=== PATIENT | female | born 1985 | race Caucasian/White ===

== ENCOUNTER 2017-04-10 13:29 | Emergency (ER) | payer MEDICAID ==
[~2017-04-10] VITALS: Ht 160 cm; Wt 50.5 kg
[2017-04-10 13:33] VITALS: Ht 160 cm; Wt 50.5 kg
[2017-04-10] MEDS ORDERED: ACYC800T57 PO (14:08)
[2017-04-10] MEDS ORDERED: TRAM50TA2 PO (14:08)
--- NOTE | 2017-04-10 14:14 | ERD ---
ER Documentation Chief Complaint Date/Time DATE: 04/10/17 TIME: 14:10 Chief Complaint LT SIDED HEADACHE WITH FACIAL NUMBNESS AND ITCHING X 4 DAYS HPI 31 year old female comes in with a left sided temporal headache, with left sided facial numbness, In with left-sided forehead rash that started 2 days ago. Patient describes the pain as burning, with associated numbness. She denies any eye pain, visual changes, ear pain. She denies fevers, chills, neck stiffness. ROS All systems reviewed and are negative except as per history of present illness. Medications Home Meds Active Scripts Tramadol HCl (Tramadol HCl) 50 Mg Tablet, 50 MG PO Q4 Y for PAIN, #20 TAB Prov:DANIS REYNOLDS PA-C 04/10/17 Acyclovir* (Zovirax*) 800 Mg Tablet, 800 MG PO 5 TIMES DAILY for 7 Days, TAB Prov:DANIS REYNOLDS PA-C 04/10/17 PMhx/Soc Medical and Surgical Hx: pt denies Medical Hx, pt denies Surgical Hx Hx Alcohol Use: No Hx Substance Use: No Hx Tobacco Use: No Smoking Status: Never smoker Physical Exam Vitals Vital Signs Date Time Temp Pulse Resp B/P Pulse Ox O2 Delivery O2 Flow Rate FiO2 04/10/17 13:33 98.9 80 18 138/80 99 Physical Exam General: Well-developed, well-nourished. The patient appears in no acute distress. HEENT: Head is normocephalic, atraumatic. No scleral icterus. Pupils are equal , round, and reactive. Oral mucous membranes are moist. No pharyngeal erythema. Neck: Supple. Nontender. Lungs: Clear to auscultation. Normal air movement. Heart: Regular rate and rhythm. S1 and S2 are normal. No murmurs, gallops, or rubs. Abdomen: Soft, nontender, nondistended. Bowel sounds are normoactive. Extremities: No clubbing or cyanosis. Normal pulses. Moving extremities x 4. No weakness. Neurologic: Alert and oriented 3. No focal deficits. Cranial nerves II 12 grossly intact. There Skin: Erythematous grouped vesicles in the left upper forehead and scalp. Procedures/MDM 31-year-old female comes in with evidence of shingles, with associated headache , facial numbness. No signs of herpetic ophthalmicus, meningitis, encephalitis , systemic signs of infection. Departure Diagnosis: Primary Impression: Shingles Condition: Good Patient Instructions: Shingles (Herpes Zoster) DANIS REYNOLDS PA-C Apr 10, 2017 14:14
== END 2017-04-10 14:16 | disposition home or self-care (01) ==
LOC: FTE 13:29
DX: B02.9 Zoster without complications (principal)
CPT/HCPCS: 99284

== ENCOUNTER 2017-08-21 15:05 | Emergency (ER) | END 2017-08-21 19:28 | disposition home or self-care (01) ==

== ENCOUNTER 2018-11-19 13:55 | Emergency (ER) | payer MEDICAID ==
[~2018-11-19] VITALS: Wt 49.0 kg
[~2018-11-19 13:55] MED LIST: ACYC800T5 PO; CYCL10TA7 PO; IBUP-1542 PO; TRAM50TA2 PO
[2018-11-19 13:58] VITALS: BP 128/61; PULSE 76; RESP 18
[2018-11-19] MEDS ORDERED: CEPH-443 PO (14:51)
--- NOTE | 2018-11-19 15:26 | ERD ---
ER Documentation Chief Complaint Chief Complaint RIGHT INDEX FINGER PAIN FROM CUT FROM GLASS 2 WKS AGO,LIMITED ROM HPI This is a 33-year-old female with a nonsignificant past medical history presents ED with right index finger pain that is been present for 2 weeks. Patient states that 2 weeks ago she excellently cut the dorsal aspect of her right second digit. Patient states that she has been noticing pain and swelling along this area since. Admits to some limited range of motion. Denies fever, chills, redness, purulent drainage, tingling, numbness, lack sensation ROS All systems reviewed and are negative except as per history of present illness. Medications Home Meds Active Scripts Cephalexin* (Keflex*) 500 Mg Capsule, 500 MG PO QID for 10 Days, CAP Prov:FRANCISCO ROOT PA-C 11/19/18 Cyclobenzaprine Hcl* (Cyclobenzaprine Hcl*) 10 Mg Tablet, 10 MG PO Q8 PRN for MUSCLE SPASMS, #30 TAB Prov:CARMELA FAIR PA-C 08/21/17 Ibuprofen* (Motrin*) 600 Mg Tab, 600 MG PO Q6H PRN for PAIN AND OR ELEVATED TEMP, #30 TAB Prov:CARMELA FAIR PA-C 08/21/17 Tramadol HCl (Tramadol HCl) 50 Mg Tablet, 50 MG PO Q4 PRN for PAIN, #20 TAB Prov:DANIS REYNOLDS PA-C 04/10/17 Acyclovir* (Zovirax*) 800 Mg Tablet, 800 MG PO 5 TIMES DAILY for 7 Days, TAB Prov:DANIS REYNOLDS PA-C 04/10/17 PMhx/Soc Medical and Surgical Hx: pt denies Medical Hx, pt denies Surgical Hx Hx Alcohol Use: No Hx Substance Use: No Hx Tobacco Use: No Smoking Status: Never smoker FmHx Family History: No diabetes Physical Exam Vitals Vital Signs Date Temp Pulse Resp B/P (MAP) Pulse Ox O2 O2 Flow FiO2 Time Delivery Rate 11/19/18 97.7 76 18 128/61 100 13:58 (83) Physical Exam Const: No acute distress Head: Atraumatic Eyes: Normal Conjunctiva ENT: Normal External Ears, Nose and Mouth. Neck: Full range of motion. No meningismus. Resp: Clear to auscultation bilaterally Cardio: Regular rate and rhythm, no murmurs Ext: No cyanosis, or edema Upper Extremity - bilateral: Skin: Mild swelling along patient's right dorsal second finger Compartments: Soft Motor: Full active range of motion shoulder/elbow/wrist/hand Sensation: Intact shoulder/pinky/middle finger/thumb web space Bones: Moderate tenderness palpation along dorsal second finger, nontender humerus/elbow/forearm/wrist/hand Snuffbox: Nontender Joints: No effusion Pulses/Perfusion: 2+ radial, Capillary refill < 2 seconds Radial ulnar median nerve tested for sensory motor function with no deficit Neur: Awake and alert Psych: Normal Mood and Affect Procedures/MDM ER COURSE: The patient was stable throughout ED course. I kept the patient and/or family informed of laboratory and diagnostic imaging results throughout the emergency room course. The patient was promptly evaluated and a treatment plan was devised based on H&P and other data. This plan was discussed with the patient who agreed and had no further questions or concerns prior to discharge. MEDICAL DECISION MAKING: This is a 33-year-old female presents ED with right index finger pain times 2 weeks. Patient cut finger 2 weeks ago and is having pain and swelling along where the laceration was. There is no redness, purulent drainage, fever or chills. Given location of patient's pain and history I will treat patient prophylactically for an infection. History and physical examination other data not consistent with emergent processes including but not limited to fracture, dislocation, tendon rupture, ischemia, neurovascular injury, compartment syndrome, septic joint, avascular necrosis, osteomyelitis, necrotizing fasciitis, septic joint, septic arthritis, or other emergent conditions. Kaleb louie's vitals are stable and can be managed outpatient with close follow-up. Advised patient to follow-up with primary care in the next 48 hours. Return to ED with any worsening symptoms. DISPOSITION PLAN: We discussed follow up with the patient's primary care doctor within 24 to 48 hours. Patient counseled regarding my diagnostic impression and care plan. Prior to discharge all questions answered. Pt agrees with treatment plan and understands strict return precautions. Precautionary instructions provided including instructions to return to the ER if not improving or for any worsening or changing symptoms or concerns. ExitCare instructions provided. Prior to discharge, patients vital signs have been reviewed SPECIALIST FOLLOW UP RECOMMENDED: None Patient has been advised to follow up with primary care in 1-2 days. Disclaimer: Inadvertent spelling and grammatical errors are likely due to EHR/dictation software use and do not reflect on the overall quality of patient care. Also, please note that the electronic time recorded on this note does not necessarily reflect the actual time of the patient encounter. Blood Pressure Assessment: Patient's blood pressure was elevated (>120/80) but appears stable without evidence of hypertension emergency or urgency. The patient was counseled about the risks of hypertension and urged to pursue outpatient monitoring and therapy within a week with their primary care physician. Departure Diagnosis: Primary Impression: Finger pain Laterality: right Qualified Codes: M79.644 - Pain in right finger(s) Condition: Stable Patient Instructions: Cellulitis Referrals: [facility] YOU HAVE RECEIVED A MEDICAL SCREENING EXAM AND THE RESULTS INDICATE THAT YOU DO NOT HAVE A CONDITION THAT REQUIRES URGENT TREATMENT IN THE EMERGENCY DEPARTMENT. FURTHER EVALUATION AND TREATMENT OF YOUR CONDITION CAN WAIT UNTIL YOU ARE SEEN IN YOUR DOCTORS OFFICE WITHIN THE NEXT 1-2 DAYS. IT IS YOUR RESPONSIBILITY TO MAKE AN APPOINTMENT FOR FOLOW-UP CARE. IF YOU HAVE A PRIMARY DOCTOR --you should call your primary doctor and schedule an appointment IF YOU DO NOT HAVE A PRIMARY DOCTOR YOU CAN CALL OUR PHYSICIAN REFERRAL HOTLINE AT IF YOU CAN NOT AFFORD TO SEE A PHYSICIAN YOU CAN CHOSE FROM THE FOLLOWING [facility] [address] [facility]. [facility] [address] [facility]. [facility] [address] [facility] [address] [facility]. [facility] [address] [facility]. [facility]. [address] Additional Instructions: Patient advised to return to the ED immediately for new or worsening symptoms. Patient advised to follow up with primary care provider in the next 24-48 hours. Patient verbalized understanding and agrees with treatment plan and course of action. If patient has no primary care they may follow up with one of the [facility] clinics listed on the following page or one of the options listed below [facility] + [facility] [address] [place] [id number] or [facility] [address] [place] [address] or [facility] [address] [place] [address] FRANCISCO ROOT PA-C Nov 19, 2018 15:26
== END 2018-11-19 15:35 | disposition home or self-care (01) ==
LOC: FTE 13:55
DX: M79.644 Pain in right finger(s) (principal)
CPT/HCPCS: 99283

== ENCOUNTER 2019-03-25 13:32 | Emergency (ER) | payer MEDICAID ==
[~2019-03-25] VITALS: Ht 160 cm; Wt 51.1 kg
[~2019-03-25 13:32] MED LIST changes: +CEPH-443 PO; +PHEN-538 PO
[2019-03-25 14:07] VITALS: BP 133/76; PULSE 86; RESP 17; Ht 160 cm; Wt 51.1 kg
== END 2019-03-25 16:49 | disposition home or self-care (01) ==
LOC: FTE 13:32 → E/R 16:49
DX: O26.891 Other specified pregnancy related conditions, first trimester (principal); R30.0 Dysuria; Z3A.01 Less than 8 weeks gestation of pregnancy
CPT/HCPCS: 81001; 84703; Z7502; 99283